=== PATIENT | male | born 1990 | race Caucasian/White ===

== ENCOUNTER 2017-05-17 23:26 | Emergency (ER) | payer MEDICAID ==
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
== END 2017-05-18 02:31 | disposition home or self-care (01) ==
LOC: FB.ED 23:26
DX: S00.83XA Contusion of other part of head, initial encounter (principal); Y04.2XXA Assault by strike against or bumped into by another person, initial encounter; Z91.040 Latex allergy status
CPT/HCPCS: 36415; 70450; 72125; 80053; 85025; 99285

== ENCOUNTER 2019-12-29 09:56 | Emergency (ER) | payer MEDICAID, OTHER ==
--- NOTE | 2019-12-29 10:24 | EDM.PDOC ---
ED HPI GENERAL MEDICAL PROBLEM - General Chief Complaint: General Stated Complaint: POSSIBLE COVID Time Seen by Provider: 12/29/19 10:19 Source of Information: Reports: Patient History Limitations: Reports: No Limitations - History of Present Illness INITIAL COMMENTS - FREE TEXT/NARRATIVE: Presents to the ED because he has been "feeling off" x 3 days. Complains of feeling anxious, fatigue, and chills. Denies cough, chest pain or SOB. Recent history of tertiary exposure to COVID-19. Duration: Day(s): (3) Severity: Mild - Related Data Allergies Allergy/AdvReac Type Severity Reaction Status Date / Time diphenhydramine Allergy Hallucinati Verified 12/29/19 10:07 [From Benadryl] ons Latex, Natural Rubber Allergy Hives Verified 05/17/17 23:28 Home Meds: Home Meds Lisdexamfetamine [Vyvanse] 30 mg PO DAILY 12/29/19 [History] Vilazodone [Viibryd] 20 mg PO DAILY 12/29/19 [History] Past Medical History Cardiovascular History: Reports: Hypertension Psychiatric History: Reports: Anxiety, Depression Social & Family History - Family History Family Medical History: Noncontributory - Tobacco Use Smoking Status *Q: Current Every Day Smoker Tobacco Use Within Last Twelve Months: Cigarettes - Caffeine Use Caffeine Use: Reports: None - Alcohol Use Alcohol Use History: No - Recreational Drug Use Recreational Drug Use: Yes Recreational Drug Type: Reports: Marijuana/Hashish ED ROS GENERAL - Review of Systems Review Of Systems: Comprehensive ROS is negative, except as noted in HPI. ED EXAM, GENERAL - Physical Exam Exam: See Below Exam Limited By: No Limitations General Appearance: Alert, WD/WN, No Apparent Distress Ears: Normal External Exam Nose: Normal Inspection Throat/Mouth: No Airway Compromise Head: Atraumatic, Normocephalic Neck: Full Range of Motion Respiratory/Chest: No Respiratory Distress, Lungs Clear, Normal Breath Sounds Cardiovascular: Regular Rate, Rhythm, No Murmur GI/Abdominal: No Distention Back Exam: Full Range of Motion Extremities: Normal Range of Motion, No Pedal Edema Neurological: Alert, Normal Cognition, No Motor/Sensory Deficits Psychiatric: Normal Affect, Normal Mood Skin Exam: Warm, Dry, Intact EKG INTERPRETATION EKG Date: 12/29/19 Time: 10:10 Rhythm: NSR Rate (Beats/Min): 61 White: Normal P-Wave: Present QRS: Normal ST-T: Elevated (normal early repolarization pattern) QT: Normal Course - Vital Signs Last Recorded V/S: Last Vital Signs Temp 36.6 C 12/29/19 10:00 Pulse 59 L 12/29/19 12:08 Resp 16 12/29/19 12:08 BP 136/91 H 12/29/19 12:08 Pulse Ox 100 12/29/19 12:08 - Orders/Labs/Meds Orders: Active Orders 24 hr Category Date Time Status EKG Documentation Completion [RC] ASDIRECTED Care 12/29/19 10:05 Active EKG 12 Lead [EK] Stat Ther 12/29/19 10:05 Ordered Labs: Laboratory Tests 12/29/19 12/29/19 12/29/19 Range/Units 10:32 10:42 10:42 WBC 4.7 (4.5-12.0) X10-3/uL RBC 5.33 (4.30-5.75) x10(6)uL Hgb 16.8 (13.5-17.8) g/dL Hct 49.4 (30.0-51.3) % MCV 92.8 (80-96) fL MCH 31.5 (27.7-33.6) pg MCHC 33.9 (32.2-35.4) g/dL RDW 11.9 (11.5-15.5) % Plt Count 245 (125-369) X10(3)uL MPV 6.8 L (7.4-10.4) fL Neut % (Auto) 58.6 (46-82) % Lymph % (Auto) 26.9 (13-37) % [place] % (Auto) 8.0 (4-12) % Eos % (Auto) 6 H (1.0-5.0) % Baso % (Auto) 0 (0-2) % Neut # (Auto) 2.7 (1.6-8.3) # Lymph # (Auto) 1.3 (0.6-5.0) # [place] # (Auto) 0.4 (0.0-1.3) # Eos # (Auto) 0.3 (0.0-0.8) # Baso # (Auto) 0.0 (0.0-0.2) # PT 11.0 (9.0-11.1) sec INR 1.02 (1.00-1.24) APTT 25.0 (24.4-33.2) SECONDS Sodium (135-145) mmol/L Potassium (3.5-5.3) mmol/L Chloride (100-110) mmol/L Carbon Dioxide (21-32) mmol/L BUN (7-18) mg/dL Creatinine (0.70-1.30) mg/dL Est Cr Clr Drug Dosing Estimated GFR (MDRD) (>60) BUN/Creatinine Ratio (9-20) Glucose (80-116) mg/dL Calcium (8.6-10.2) mg/dL Total Bilirubin (0.1-1.3) mg/dL AST (5-25) IU/L ALT (12-36) U/L Alkaline Phosphatase (56-112) IU/L Troponin I (4.0-60.3) pg/mL Total Protein (6.0-8.0) g/dL Albumin (3.5-5.2) g/dL Globulin g/dL Albumin/Globulin Ratio SARS Virus RNA (PCR) Negative (NEGATIVE) 12/29/19 12/29/19 Range/Units 10:42 10:42 WBC (4.5-12.0) X10-3/uL RBC (4.30-5.75) x10(6)uL Hgb (13.5-17.8) g/dL Hct (30.0-51.3) % MCV (80-96) fL MCH (27.7-33.6) pg MCHC (32.2-35.4) g/dL RDW (11.5-15.5) % Plt Count (125-369) X10(3)uL MPV (7.4-10.4) fL Neut % (Auto) (46-82) % Lymph % (Auto) (13-37) % [place] % (Auto) (4-12) % Eos % (Auto) (1.0-5.0) % Baso % (Auto) (0-2) % Neut # (Auto) (1.6-8.3) # Lymph # (Auto) (0.6-5.0) # [place] # (Auto) (0.0-1.3) # Eos # (Auto) (0.0-0.8) # Baso # (Auto) (0.0-0.2) # PT (9.0-11.1) sec INR (1.00-1.24) APTT (24.4-33.2) SECONDS Sodium 137 (135-145) mmol/L Potassium 3.9 (3.5-5.3) mmol/L Chloride 103 (100-110) mmol/L Carbon Dioxide 29 (21-32) mmol/L BUN 16 (7-18) mg/dL Creatinine 1.0 (0.70-1.30) mg/dL Est Cr Clr Drug Dosing TNP Estimated GFR (MDRD) > 60 (>60) BUN/Creatinine Ratio 16.0 (9-20) Glucose 96 (80-116) mg/dL Calcium 9.0 (8.6-10.2) mg/dL Total Bilirubin 1.2 (0.1-1.3) mg/dL AST 21 D (5-25) IU/L ALT 27 (12-36) U/L Alkaline Phosphatase 63 (56-112) IU/L Troponin I 4.5 (4.0-60.3) pg/mL Total Protein 7.9 (6.0-8.0) g/dL Albumin 4.2 (3.5-5.2) g/dL Globulin 3.7 g/dL Albumin/Globulin Ratio 1.1 SARS Virus RNA (PCR) (NEGATIVE) - Re-Assessments/Exams Free Text/Narrative Re-Assessment/Exam: 12/29/19 12:28 Patient feels better after learning that his COVID-19 test was negative. BP improved spontaneously. Departure - Departure Time of Disposition: 12:30 Disposition: Home, Self-Care 01 Condition: Good Clinical Impression: Viral syndrome, Anxiety - Discharge Information *PRESCRIPTION DRUG MONITORING PROGRAM REVIEWED*: No *COPY OF PRESCRIPTION DRUG MONITORING REPORT IN PATIENT ROSHAN: Not Applicable Instructions: Viral Illness, Adult, Generalized Anxiety Disorder, Adult Forms: ED Department Discharge Additional Instructions: Follow up with your primary physician in 3-4 days if symptoms don't improve. Return to the ER if symptoms worsen. Sepsis Event Note (ED) - Focused Exam Vital Signs: Vital Signs Temp Pulse Resp BP Pulse Ox 12/29/19 12:08 59 L 16 136/91 H 100 12/29/19 10:28 75 16 133/86 99 12/29/19 10:00 36.6 C 67 18 158/116 H - My Orders Last 24 Hours: My Active Orders 12/29/19 10:05 EKG Documentation Completion [RC] ASDIRECTED EKG 12 Lead [EK] Stat - Assessment/Plan Last 24 Hours: My Active Orders 12/29/19 10:05 EKG Documentation Completion [RC] ASDIRECTED EKG 12 Lead [EK] Stat
== END 2019-12-29 12:39 | disposition home or self-care (01) ==
LOC: FB.ED 09:56
DX: B34.9 Viral infection, unspecified (principal); F41.9 Anxiety disorder, unspecified; F32.9 Major depressive disorder, single episode, unspecified; I10 Essential (primary) hypertension; F17.210 Nicotine dependence, cigarettes, uncomplicated; Z20.828 Contact with and (suspected) exposure to other viral communicable diseases; Z79.899 Other long term (current) drug therapy; Z91.040 Latex allergy status; Z88.8 Allergy status to other drugs, medicaments and biological substances
CPT/HCPCS: 36415; 80053; 84484; 85025; 85610; 85730; 93005; 93010; 99282; 99283-25; U0002

== ENCOUNTER 2020-01-31 09:09 | Emergency (ER) | payer MEDICAID, OTHER ==
[2020-01-31] MEDS ORDERED: Acetaminophen/Codeine 300-30 MG Tab PO ONE (09:10)
--- NOTE | 2020-01-31 09:49 | EDM.PDOC ---
ED HPI GENERAL MEDICAL PROBLEM - General Chief Complaint: Back Pain or Injury Stated Complaint: LOWER BACK PAIN Time Seen by Provider: 01/31/20 09:46 Source of Information: Reports: Patient History Limitations: Reports: No Limitations - History of Present Illness INITIAL COMMENTS - FREE TEXT/NARRATIVE: Eduardo complains of lower back pain since . He lifted his son,and radhames santiago felt pain. Has since taken Motrin/Flexeril with no relief. No radiation. He endorses some numbness down the legs without any weakness. Lower Back Pain Score (Numeric/FACES): 5 - Related Data Allergies Allergy/AdvReac Type Severity Reaction Status Date / Time diphenhydramine Allergy Hallucinati Verified 12/29/19 10:07 [From Benadryl] ons Latex, Natural Rubber Allergy Hives Verified 05/17/17 23:28 Home Meds: Home Meds Lisdexamfetamine [Vyvanse] 10 mg PO DAILY 12/29/19 [History] Past Medical History Cardiovascular History: Reports: Hypertension Psychiatric History: Reports: Anxiety, Depression Social & Family History - Family History Family Medical History: Noncontributory - Tobacco Use Smoking Status *Q: Never Smoker - Caffeine Use Caffeine Use: Reports: None ED ROS GENERAL - Review of Systems Review Of Systems: Comprehensive ROS is negative, except as noted in HPI. ED EXAM,LOWER BACK PAIN/INJURY - Physical Exam Exam: See Below Exam Limited By: No Limitations General Appearance: Alert, WD/WN, No Apparent Distress Back Exam: Normal Inspection Neurological: Alert, Normal Mood/Affect Psychiatric: Normal Affect Skin Exam: Warm Lymphatic: No Adenopathy Course - Vital Signs Last Recorded V/S: Last Vital Signs Temp 97.6 F 01/31/20 09:21 Pulse 94 01/31/20 09:21 Resp 16 01/31/20 09:21 BP 136/87 01/31/20 09:21 Pulse Ox 98 01/31/20 09:21 Departure - Departure Time of Disposition: 09:48 Disposition: Home, Self-Care 01 Condition: Good Clinical Impression: Lower back injury - Discharge Information Instructions: Lumbar Sprain Referrals: Clive Pritchett MD [Primary Care Provider] - 02/02/20 Forms: ED Department Discharge Sepsis Event Note (ED) - Evaluation Sepsis Screening Result: No Definite Risk - Focused Exam Vital Signs: Vital Signs Temp Pulse Resp BP Pulse Ox 01/31/20 09:21 97.6 F 94 16 136/87 98 - Problem List & Annotations (1) Lower back injury SNOMED Code(s): 072485596 Code(s): S39.92XA - UNSPECIFIED INJURY OF LOWER BACK, INITIAL ENCOUNTER Status: Acute Qualifiers: Encounter type: initial encounter Qualified Code(s): S39.92XA - Unspecified injury of lower back, initial encounter - Problem List Review Problem List Initiated/Reviewed/Updated: Yes - Assessment/Plan Plan: Lalo #3 one tab bid prn
== END 2020-01-31 10:20 | disposition home or self-care (01) ==
LOC: FB.ED 09:09
DX: S39.92XA Unspecified injury of lower back, initial encounter (principal); I10 Essential (primary) hypertension; Z79.899 Other long term (current) drug therapy; Z91.040 Latex allergy status; Z88.8 Allergy status to other drugs, medicaments and biological substances; X50.9XXA Other and unspecified overexertion or strenuous movements or postures, initial encounter
CPT/HCPCS: 99283; A9270

== ENCOUNTER 2023-03-31 07:17 | Emergency (ER) | payer BC, MEDICAID ==
[2023-03-31] MEDS ORDERED: Acetaminophen/oxyCODONE 325-5 MG Tab PO STA (07:34)
[2023-03-31] MEDS ORDERED: Ketorolac 30 MG/ML SDV IM STA (07:34)
[2023-03-31] MEDS ORDERED: Cyclobenzaprine 10 MG Tab PO ONE (07:34)
[2023-03-31] MEDS ORDERED: Lidocaine 4% 1 each Patch TOP STA (08:29)
== END 2023-03-31 09:20 | disposition home or self-care (01) ==
LOC: FB.ED 07:17
DX: M51.16 Intervertebral disc disorders with radiculopathy, lumbar region (principal); I10 Essential (primary) hypertension; F17.210 Nicotine dependence, cigarettes, uncomplicated; Z88.8 Allergy status to other drugs, medicaments and biological substances; Z91.010 Allergy to peanuts
CPT/HCPCS: 96372; 99283; A9270-GY; J1885